=== PATIENT | female | born 1975 | race Caucasian/White ===

== ENCOUNTER 2017-01-18 19:43 | Emergency (ER) | payer OTHER ==
[~2017-01-18] VITALS: Ht 160 cm; Wt 54.5 kg
[~2017-01-18 19:43] MED LIST: ESTROGEN; INTERFERON; VIT E; [UNRECOGNIZED DRUG - OTHER] PO
[2017-01-18 20:57] LABS: HEMATOCRIT 39.9 % (36.0-46.0); MCH 29.2 PG (29.0-34.0); MCHC 33.1 G/DL (30.0-36.0); MCV 88.3 FL (83-99); MEAN PLAT.VOLUME 10.3 uM^3 (9.5-12.4); PLATELET COUNT 256 K/uL (156-360); RBC DIS.WIDTH-CV 12.2 % (11.8-14.6); RBC DIS.WIDTH-SD 39.3 % (39-53); RED BLOOD COUNT 4.52 M/uL (3.80-5.20); WHITE BLOOD COUNT 10.6 K/uL (4.1-10.2)
[2017-01-18 21:09] LABS: CHLORIDE 105 mEq/L (99-109); POTASSIUM 3.3 mEq/L (3.7-5.4); SODIUM 143 mEq/L (136-147)
[2017-01-18 21:11] LABS: GLUCOSE 100 mg/dL (70-99)
[2017-01-18 21:13] LABS: ANION GAP 10 MEQ/L (2-14)
[2017-01-18 21:15] LABS: GFR ESTIMATE (CALCULATED) > 59 mL/min/
[2017-01-18 21:16] LABS: UREA NITROGEN (BUN) 7 mg/dL (9-23)
[2017-01-18 21:19] LABS: TROP-I INTERPRETATION NEGATIVE; TROPONIN-I < 0.01 ng/mL (0.0-0.30)
[2017-01-18 22:16] LABS: D-DIMER ELISA < 150.00 ng/mLDDU (<230)
[2017-01-18 23:38] VITALS: BP 157/99
== END 2017-01-18 23:38 | disposition home or self-care (01) ==
LOC: EME 19:43
DX: R00.2 Palpitations (principal); I10 Essential (primary) hypertension; E05.00 Thyrotoxicosis with diffuse goiter without thyrotoxic crisis or storm
CPT/HCPCS: 71020; 80048; 84439; 84443; 84484; 85027; 85379; 93005; 99281; 99284; J7030